=== PATIENT | female | born 1980 | race Two or more races ===

== ENCOUNTER 2019-09-22 13:32 | Inpatient (IN) | payer MEDICARE, MEDICAID ==
[~2019-09-22] VITALS: Ht 165.1 cm; Wt 64.9 kg
[2019-09-22] MEDS ORDERED: AMLODIPINE 2.5MG TABLET PO ONE (14:00)
[2019-09-22] MEDS: NITROGLYCERIN 0.4MG TABLET SL SL PRN ×2 (14:30→20:34)
[2019-09-22 14:33] LABS: BASOPHILS % 0.3 % (0.0-2.0); EOSINOPHILS % 0.5 % (0.0-5.0); HEMATOCRIT. 35.7 % (36.0-48.0); HEMOGLOBIN. 12.1 g/dL (12.0-16.0); LYMPHOCYTES % 40.8 % (20.0-50.0); MEAN CORPUSCULAR HEMOGLOBIN 28.8 pg (28.0-32.0); MEAN CORPUSCULAR VOLUME 85.3 fL (81.0-99.0); MEAN PLATELET VOLUME 7.9 fl (7.4-10.4); MONOCYTES % 6.7 % (2.0-8.0); NEUTROPHILS % 51.7 % (40.0-76.0); PLATELET 394 x1000/uL (130-400); RED BLOOD CELL COUNT 4.19 mill/uL (4.2-5.4)
[2019-09-22 14:40] LABS: CHLORIDE 109 mEq/L (98-107)
[2019-09-22 14:44] LABS: HCG SCREEN NEGATIVE
[2019-09-22] MEDS ORDERED: LORAZEPAM 2MG/ML CPJ IV ONE ×2 (15:00→17:45)
[2019-09-22] MEDS ORDERED: ACETAMINOPHEN 325MG TABLET PO ONE (17:15)
[2019-09-22] MEDS ORDERED: HYDROCODONE/ACETAMINOPHEN 5/325MG TABLET PO PRN (23:45)
[2019-09-23] MEDS ORDERED: LORAZEPAM 1MG TABLET PO PRN (02:45)
[2019-09-23] MEDS ORDERED: NITR0.4T49 SL (02:55)
[2019-09-23] MEDS ORDERED: METH10TA7 MT (02:55)
[2019-09-23] MEDS ORDERED: HYDR200T35 PO (02:55)
[2019-09-23] MEDS ORDERED: FLUT15.844 BOTHNSTRLS (02:55)
[2019-09-23] MEDS ORDERED: AMOX125S12 PO (02:55)
[2019-09-23 03:00] VITALS: BP 129/74
[2019-09-23] MEDS: ONDANSETRON HCL 4MG/2ML INJ IV PRN ×3 (03:26→10:34)
[2019-09-23] MEDS: HYDROCODONE/ACETAMINOPHEN 10/325MG TABLET PO PRN ×2 (03:26→04:43)
[2019-09-23 03:49] VITALS: BP 129/74
[2019-09-23] MEDS ORDERED: NITROGLYCERIN 0.4MG TABLET SL SL SCH (05:15)
[2019-09-23 08:00] VITALS: BP 97/59
[2019-09-23] MEDS ORDERED: ASPIRIN 81MG TABLET PO SCH (09:00)
[2019-09-23] MEDS ORDERED: METHIMAZOLE 10MG TABLET PO SCH (09:00)
[2019-09-23] MEDS ORDERED: PANTOPRAZOLE SODIUM 40 MG/VIAL IV SCH (09:00)
[2019-09-23] MEDS ORDERED: HYDROXYCHLOROQUINE SULFATE 200MG TABLET PO SCH (09:00)
[2019-09-23] MEDS ORDERED: AMOXICILLIN/POTASSIUM CLAVULANATE 875/125MG TAB PO SCH (09:00)
[2019-09-23 12:00] VITALS: BP 105/65
[2019-09-23 16:03] LABS: BASOPHILS % 0.3 % (0.0-2.0); EOSINOPHILS % 0.5 % (0.0-5.0); HEMATOCRIT. 37.1 % (36.0-48.0); HEMOGLOBIN. 12.4 g/dL (12.0-16.0); LYMPHOCYTES % 46.6 % (20.0-50.0); MEAN CORPUSCULAR HEMOGLOBIN 28.5 pg (28.0-32.0); MEAN CORPUSCULAR VOLUME 84.8 fL (81.0-99.0); MEAN PLATELET VOLUME 7.9 fl (7.4-10.4); MONOCYTES % 8.9 % (2.0-8.0); NEUTROPHILS % 43.7 % (40.0-76.0); PLATELET 411 x1000/uL (130-400); RED BLOOD CELL COUNT 4.37 mill/uL (4.2-5.4); RED CELL DISTRIBUTION WIDTH 13.7 % (11.6-14.6)
[2019-09-23 16:15] LABS: CHLORIDE 107 mEq/L (98-107)
[2019-09-23 16:25] LABS: LDL CHOLESTEROL 114 mg/dL (5-100)
[2019-09-23 16:27] LABS: T4 FREE 0.92 ng/dL (0.76-1.46)
[2019-09-23 16:28] LABS: HDL CHOLESTEROL 43 mg/dL (40-59)
[2019-09-23] MEDS ORDERED: IPRATROPIUM/ALBUTEROL 0.5-3(2.5)MG/3ML NEB HHN PRN (16:45)
[2019-09-23] MEDS ORDERED: ACETAMINOPHEN 325MG TABLET PO PRN (16:45)
[2019-09-23] MEDS ORDERED: LACTULOSE 20G/30ML UDC PO PRN (16:45)
[2019-09-23] MEDS ORDERED: HYDRALAZINE 20MG/ML VIAL IV PRN (16:45)
[2019-09-23] MEDS ORDERED: ACETAMINOPHEN 650MG SUPP PR PRN (16:45)
[2019-09-23] MEDS ORDERED: DIPHENHYDRAMINE 50MG/ML VIAL IV PRN (16:45)
[2019-09-23 16:56] VITALS: BP 113/74
[2019-09-23] MEDS ORDERED: AMOXICILLIN 125 MG/5 ML 100 ML BOTTLE PO SCH (17:00)
[2019-09-23] MEDS ORDERED: LEVOFLOXACIN 500MG PREMIX 100 ML IV SCH (19:00)
[2019-09-23] MEDS ORDERED: AMLODIPINE 2.5MG TABLET PO SCH (21:00)
== END 2019-09-23 17:25 | disposition left against medical advice (07) | DRG 205 ==
LOC: ER 13:32 → EDBEDREQTM 20:17 → MICUSO 21:44 → EDBEDREQ 21:48 → EDBEDREQTM 21:48 → ENRESERV 22:13 → CANRESERV 22:13 → 8WST 09-23 00:25
PROVIDERS: ADMIT Internal Medicine; ATTEND Internal Medicine
DX: M94.0 Chondrocostal junction syndrome [Tietze] (principal); I50.33 Acute on chronic diastolic (congestive) heart failure; G90.8 Other disorders of autonomic nervous system; E03.9 Hypothyroidism, unspecified; E05.90 Thyrotoxicosis, unspecified without thyrotoxic crisis or storm; E86.0 Dehydration; E87.6 Hypokalemia; F41.9 Anxiety disorder, unspecified; H66.91 Otitis media, unspecified, right ear; R32 Unspecified urinary incontinence; F99 Mental disorder, not otherwise specified; M32.9 Systemic lupus erythematosus, unspecified; Z53.29 Procedure and treatment not carried out because of patient's decision for other reasons; Z88.0 Allergy status to penicillin
CPT/HCPCS: 36415; 71045; 80048; 80053; 80061; 82962; 83036; 83880; 84439; 84443; 84484; 84703; 85025; 85379; 93005; 93306; 99285; C9113; J1956; J2060; J2405